=== PATIENT | male | born 1975 | race African-American/Black ===

== ENCOUNTER 2019-01-26 21:22 | Emergency (ER) | payer BC ==
[~2019-01-26] VITALS: Ht 175.3 cm; Wt 77.1 kg
[2019-01-26] MEDS ORDERED: NKM (21:37)
--- NOTE | 2019-01-26 21:50 | Emergency Room Report ---
History of Present Illness General Chief Complaint: Pain Source: Patient Present Illness HPI Patient is a 43-year-old male presented after increased low back pain for several weeks. He reports of increased pain to the left hamstring as well as to his left buttock. He reports having gradual worsening of pain. He reports having pain after onset while playing football. He states that he has been having multiple episodes of pain in the past. He denies any urinary symptoms. Allergies: Coded Allergies: No Known Allergies (Unverified , 01/26/19) Patient History Past Medical History: see triage record Reviewed Nursing Documentation: PMH: Agreed; PSxH: Agreed Nursing Documentation-PM Past Medical History: No Stated History Review of Systems All Other Systems: negative except mentioned in HPI Physical Exam Vital Signs Date Time Temp Pulse Resp B/P (MAP) Pulse Ox O2 Delivery O2 Flow Rate FiO2 01/26/19 21:25 98.4 75 18 99 Room Air Sp02 EP Interpretation: reviewed, normal General Appearance: normal inspection, well appearing, no apparent distress, alert, GCS 15 Head: atraumatic ENT: normal ENT inspection, hearing grossly normal, normal voice Neck: normal inspection, full range of motion, supple, no bony tend Respiratory: normal inspection, lungs clear, normal breath sounds, no respiratory distress, no retraction, no wheezing Cardiovascular #1: regular rate, rhythm, no edema Gastrointestinal: normal inspection, normal bowel sounds, non tender, soft, no guarding, no hernia Genitourinary: no CVA tenderness Musculoskeletal: normal inspection, normal range of motion, decreased range of motion, other - tenderness to right posterior thigh Neurologic: normal inspection, alert, oriented x3, responsive, water use inspector III-XII nml as tested, speech normal Psychiatric: normal inspection, judgement/insight normal, mood/affect normal Skin: normal inspection, normal color, no rash Medical Decision Making Diagnostic Impression: Primary Impression: Low back pain Additional Impression: Muscle strain ER Course Patient presented for back pain. Differential diagnosis included but was not limited to herniated disc, cauda equina syndrome, abdominal aortic aneurysm, perforated ulcer, spinal epidural abscess, spinal stenosis, lumbar fracture, metastatic lesion, pyelonephritis. Patient was noted to have history of back pain. 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 He reports having prior injury playing football and this may have contributed to the new discomfort. Patient denies any new leg swelling. Patient's calves appear to be symmetric. Patient was given medications for pain with improvement.Patient was given Robaxin with improvement in his back pain. Patient was advised to follow-up for physical therapy. He was advised to return if any worsening condition or other concerns. He was advised to not take his muscle relaxants while driving or at risk of having problems from sedation. Labs Test 01/26/19 22:30 Urine Color Pale yellow Urine Appearance Clear Urine pH 7 (4.5-8.0) Urine Specific [place] 1.010 (1.005-1.035) Urine Protein Negative (NEGATIVE) Urine Glucose (UA) Negative (NEGATIVE) Urine Ketones 1+ (NEGATIVE) Urine Blood 1+ (NEGATIVE) Urine Nitrite Negative (NEGATIVE) Urine Bilirubin Negative (NEGATIVE) Urine Urobilinogen Normal MG/DL (0.0-1.0) Urine Leukocyte Esterase Negative (NEGATIVE) Urine RBC 0-2 /HPF (0 - 0) Urine WBC 0-2 /HPF (0 - 0) Urine Squamous Epithelial Cells Occasional /LPF Urine Bacteria Occasional /HPF (NONE) Last Vital Signs Date Time Temp Pulse Resp B/P (MAP) Pulse Ox O2 Delivery O2 Flow Rate FiO2 01/26/19 21:25 98.4 75 18 99 Room Air Status: improved Disposition: HOME, SELF-CARE Condition: Stable Scripts Acetaminophen* (ACETAMINOPHEN EXTRA STRENGTH*) 500 Mg Tablet 500 MG ORAL Q8H PRN for Fever/Headache/Mild Pain, #30 TAB Prov: Michael Enciso MD 01/26/19 Methocarbamol* (ROBAXIN-750*) 750 Mg Tablet 750 MG PO TID, #21 TAB 0 Refills Prov: Michael Enciso MD 01/26/19 Michael Enciso MD January 26, 2019 21:49
[2019-01-26 21:57] VITALS: BP 129/84
--- NOTE | 2019-01-26 21:57 | NUR ---
ED Nurse Note: Zaira walked into ED c/o sciatic nerve pain, states that he went to a clinic prior to this and got medication but found no relief
[2019-01-26] MEDS ORDERED: Ketorolac 60mg Inj IM ONE (22:00)
[2019-01-26] MEDS ORDERED: ROBAXIN-750750 MG PO (22:24)
[2019-01-26] MEDS ORDERED: ACETAMINOPHEN500 M3 ORAL (22:24)
[2019-01-26] MEDS ORDERED: Methocarbamol 750mg tab ORAL ONE (22:30)
[2019-01-26 22:58] LABS: APPEARANCE,URINE CLEAR; BILIRUBIN, URINE NEGATIVE (NEGATIVE); COLOR,URINE PALE YELLOW; GLUCOSE, URINE (UA) NEGATIVE (NEGATIVE); KETONES,URINE 1+ (NEGATIVE); LEUKOCYTE ESTERASE ,URINE NEGATIVE (NEGATIVE); NITRITE,URINE NEGATIVE (NEGATIVE); PH,URINE 7 (4.5-8.0); PROTEIN,URINE NEGATIVE (NEGATIVE); UROBILINOGEN,URINE NORMAL MG/DL (0.0-1.0)
--- NOTE | 2019-01-26 23:25 | NUR ---
ER DISCHARGE NOTE: Patient is cleared to be discharged per ERMD, pt is aox4, on room air, with stable vital signs. pt was given dc and prescription instructions, pt was able to verbalize understanding, pt id band removed. pt is able to ambulate with steady gait. pt took all belongings.
[2019-01-26 23:26] VITALS: BP 125/85
== END 2019-01-26 23:25 | disposition home or self-care (01) ==
LOC: EMR 22:10
DX: M54.5 Low back pain (principal); T14.8XXA Other injury of unspecified body region, initial encounter; X58.XXXA Exposure to other specified factors, initial encounter; Y92.9 Unspecified place or not applicable; M79.605 Pain in left leg; Y93.61 Activity, american tackle football
CPT/HCPCS: 81003; 96372; 99283